=== PATIENT | male | born 2000 | race Two or more races ===

== ENCOUNTER 2022-03-28 18:05 | Emergency (ER) | payer SELFPAY ==
[~2022-03-28] VITALS: Ht 175.3 cm; Wt 73.2 kg
[2022-03-28 21:19] VITALS: BP 117/59
== END 2022-03-29 04:28 | disposition left against medical advice (07) ==
LOC: M ED 18:05
DX: Z53.21 Procedure and treatment not carried out due to patient leaving prior to being seen by health care provider (principal)

== ENCOUNTER → 2023-05-24 | Outpatient (REF) | payer SELFPAY ==
[2023-05-24 19:07] LABS: Trichomonas vaginalis (AMP) NOT DETECTED (NEGATIVE)
[2023-05-24 19:30] LABS: GC DNA AMPLIFICATION NEGATIVE (NEGATIVE)
== END ==
LOC: M LAB REF 16:34
PROVIDERS: ATTEND Physician Assistant
DX: R30.0 Dysuria (principal)